=== PATIENT | female | born 1960 | race Caucasian/White ===

== ENCOUNTER 2021-05-17 06:01 | Outpatient (CLI) | payer OTHER, SELFPAY ==
--- NOTE | 2021-05-17 12:10 | NEURO ---
NCS and/or EMG Patient Report Ordering Doctor: Jeni Thomas DATE OF SERVICE: 05/17/21 Saira presents for electrodiagnostic testing of the lower limbs. She reports sharp shooting pain in the low back radiating primarily into the left leg. Electrodiagnostic findings: Peroneal motor nerve demonstrates normal distal latency, amplitude and conduction velocity bilaterally. Normal tibial motor response bilaterally. Normal tibial and peroneal F waves. H reflex normal bilaterally. Sensory responses are within normal limits. On needle EMG, all muscles tested in the lower limbs showed no evidence of denervation with normal motor unit action potentials. No denervation is noted in the lumbar paraspinals. Electrodiagnostic assessment: This is a normal electrodiagnostic study in the lower limbs. There is no electrodiagnostic evidence for lumbosacral radiculopathy or peripheral neuropathy
== END 2021-05-17 23:59 | disposition home or self-care (01) ==
LOC: PSN 06:04
PROVIDERS: PCP General Practice; Referring Provider Anesthesiology Pain Medicine; Visit Provider Anesthesiology Pain Medicine
DX: M79.605 Pain in left leg (principal)
CPT/HCPCS: 95886; 95912

== ENCOUNTER 2021-06-17 09:02 | Outpatient (CLI) | payer OTHER, SELFPAY ==
--- NOTE | 2021-06-17 09:20 | MRI_ITS ---
STUDY: MRI LUMBAR SPINE WITHOUT CONTRAST REASON FOR EXAM: Female, 60 years old. Onset of new symptom -- change in condition from previous MRI- thigh pain TECHNIQUE: Standardized fat and water weighted pulse sequences were obtained in the sagittal and axial planes. COMPARISON: Lumbar spine radiographs 05/22/2021. FINDINGS: T11-T12: (Sagittal only). Schmorl''s node in the central T11 inferior endplate. Normal endplates. Mild disc space height narrowing. Mild ventral SOB defect due to small posterior bulging annulus. Normal central canal and bilateral intervertebral neural foramina. T12-L1: (Sagittal only). Schmorl''s node in the central T12 inferior endplate. Normal endplates. Mild disc space height narrowing. No ventral extradural defect. Normal central canal and bilateral intervertebral neural foramina. Normal lumbar lordosis. There is no substantial scoliosis. Normal conus medullaris that terminates at the T12-L1 disc space level. L1-2: Schmorl''s node in the central L1 inferior endplate. Normal endplates. Normal disc height, hydration and morphology. Normal facet joints. Normal central canal and bilateral lateral recesses. Normal bilateral intervertebral neural foramina. L2-3: Pronounced left-sided disc space height narrowing with MODIC type I degenerative vertebral marrow edema underneath the vertebral endplates. Mild ventral extra dural defect due to small posterior bulging annulus. Normal facet joints. Normal central canal and bilateral lateral recesses. Normal bilateral intervertebral neural foramina. L3-4: Normal endplates. Mild disc space height narrowing. Mild ventral extra dural defect increasing towards the left side is asymmetric posterior annular bulging disc. Pronounced central canal stenosis with an AP canal diameter of 6.3 mm secondary to developmentally short pedicles. Normal bilateral lateral recesses. Mild right degenerative facet arthropathy. Normal left facet joint. Normal bilateral intervertebral neural foramina. L4-5: Normal endplates. Minimal disc space height narrowing. Minimal degenerative anterolisthesis of L4 on L5. Moderately pronounced right degenerative facet arthropathy. Moderate left degenerative facet arthropathy. Moderately pronounced flattening central canal stenosis with an AP canal diameter of 5.8 mm. Normal bilateral lateral recesses. Normal bilateral intervertebral neural foramina. L5-S1: Normal endplates. Pronounced posterior disc space height narrowing. Prominent ventral extradural defect due to posterior annular bulging disc. Normal facet joints. Moderate central canal stenosis with an AP canal diameter of 8 mm. Normal bilateral lateral recesses. Mild stenosis of the right intervertebral neural foramen. Normal left intervertebral neural foramen. Normal visualized sacral ala. Normal visualized paraspinous soft tissue structures. MRI/Spine Lumbar (Routine) IMPRESSION: 1. Moderately pronounced central canal stenosis at L4-L5 disc space level with an AP canal diameter of 5.8 mm, minimal degenerative anterolisthesis of L4 on L5, moderately pronounced right degenerative facet arthropathy and moderate left degenerative facet arthropathy. 2. Moderately pronounced central canal stenosis at L3-L4 disc space level with an AP canal diameter of 6.3 mm. 3. Moderate central canal stenosis at L5-S1 disc space level with an AP canal diameter of 8 mm. 4. No MRI evidence of lumbar extruded disc fragment. 5. Pronounced left-sided L2-L3 due to disc space height narrowing with moderate intervertebral osteochondritis (MODIC type I). Electronically Signed: Danilo Leon MD at 11:25 EDT ,
== END 2021-06-17 23:59 | disposition home or self-care (01) ==
LOC: MRI 09:06
PROVIDERS: Referring Provider Orthopaedic Surgery; Visit Provider Orthopaedic Surgery
DX: M79.652 Pain in left thigh (principal); M54.50 Low back pain, unspecified; G89.29 Other chronic pain
CPT/HCPCS: 72148